=== PATIENT | female | born 1965 | race Caucasian/White ===

== ENCOUNTER → 2016-10-26 | Outpatient (CLI) | payer OTHER ==
[~2016-10-26] MED LIST: CLC100X PO; ESCI10TA17 PO; ESTR1CRE PV; FLUT0.15 NAE; GABA1CAP4 PO; LAMO200T38 PO; MULT-506 PO; PRM625 PO; RISP1TAB18 PO; SALI0.6517 NAE; TAMS0.4C38 PO; TRAZ100T29 PO; [UNRECOGNIZED DRUG - CODE] PO
== END | disposition home or self-care (01) ==
LOC: C.PAPS 08:20
PROVIDERS: ATTEND Obstetrics & Gynecology
DX: Z12.4 Encounter for screening for malignant neoplasm of cervix (principal)

== ENCOUNTER → 2016-10-31 | Outpatient (CLI) | payer OTHER | END | disposition home or self-care (01) | LOC: C.PATH 08:48 | PROVIDERS: ATTEND Obstetrics & Gynecology | DX: R59.1 Generalized enlarged lymph nodes (principal) ==

== ENCOUNTER → 2017-02-22 | Outpatient (CLI) | payer OTHER ==
--- NOTE | 2017-02-23 13:54 | MAMMOGRAPHY REPORT ---
BILATERAL DIGITAL SCREENING MAMMOGRAM TOMOSYNTHESIS WITH CAD: 02/22/2017 CLINICAL HISTORY: Routine screening. The patient reported to the technologist that she has no new co mplaints, but has a stable lump in her left breast which she has had for years. TECHNIQUE: Breast tomosynthesis in addition to standard 2D mammography was performed. Current study was also evaluated with a Computer Aided Detection (CAD) system. COMPARISON: Comparison is made to exams dated: 02/18/2016 ultrasound, 02/18/2016 mammogram - [facility], 08/11/2015 ultrasound, 03/30/2015 mammogram, 01/26/2014 mammogram, and 01/15/2013 mamm ogram - [facility] [address]. BREAST COMPOSITION: The tissue of both breasts is extremely dense, which lowers the sensitivity of m ammography. FINDINGS: No suspicious masses, calcifications, or areas of architectural distortion are noted in ei ther breast. There has been no significant interval change compared to prior exams. A triangle marke r was placed at the site of the stable left breast lump which the patient reported to the technologis t that she has had for several years. An ultrasound of this region was performed in 2015 which showe d a benign cyst. IMPRESSION: ACR BI-RADS CATEGORY 2: BENIGN There is no mammographic evidence of malignancy. A 1 year screening mammogram is recommended. The pa tient will receive written notification of the results. Approximately 10% of breast cancers are not detected with mammography. A negative mammographic report should not delay biopsy if a clinically suggestive mass is present. Dorene Sim M.D. /:02/22/2017 15:17:01 [employer] Runner Operator: Vivian HUDSON(Jeffry)(Ora), [facility] [address] letter sent: Normal 1/2 BI-RADS Code: ACR BI-RADS Category 2: Benign
== END | disposition home or self-care (01) ==
LOC: C.MAMM 11:36
PROVIDERS: ATTEND Family Medicine
DX: Z12.31 Encounter for screening mammogram for malignant neoplasm of breast (principal)

== ENCOUNTER → 2017-02-22 | Outpatient (CLI) | payer OTHER ==
--- NOTE | 2017-02-22 12:37 | DIAGNOSTIC IMAGING REPORT ---
L-SPINE MIN 4 VIEWS ROUTINE CLINICAL HISTORY: Low back pain. COMPARISON: CT of the abdomen and pelvis March 14, 2015. FINDINGS: There pelvic surgical clips. No lumbar spine fracture is identified. Vertebral body heights are maintained. There is 7 mm of anterolisthesis of L5 on S1. This is likely due to facet arthrosis. There is severe facet arthrosis bilaterally at the S1 level. Disc spaces are preserved. There is mild endplate osteophytosis. IMPRESSION: 1. Grade I anterolisthesis of L5 on S1 likely due to severe facet arthrosis at this level. 2. Mild multilevel degenerative disc disease. 3. Severe bilateral facet arthrosis at L5-S1. Electronically signed by: Shane Armando M.D. 02/22/2017 12:36 PM Dictated Date/Time: 02/22/2017 12:30 PM
== END | disposition home or self-care (01) ==
LOC: C.RAD1850 12:12
PROVIDERS: ATTEND Family Medicine
DX: M54.5 Low back pain (principal); M47.817 Spondylosis without myelopathy or radiculopathy, lumbosacral region

== ENCOUNTER → 2017-02-28 | Outpatient (CLI) | payer OTHER | END | disposition home or self-care (01) | LOC: C.LABSPEC 16:56 | PROVIDERS: ATTEND Nurse Practitioner Adult Health | DX: N39.0 Urinary tract infection, site not specified (principal) ==

== ENCOUNTER → 2017-04-26 | Outpatient (CLI) | payer OTHER | END | disposition home or self-care (01) | LOC: C.PAPS 13:41 | PROVIDERS: ATTEND Obstetrics & Gynecology | DX: Z85.41 Personal history of malignant neoplasm of cervix uteri (principal) ==

== ENCOUNTER → 2017-11-06 | Outpatient (CLI) | payer OTHER ==
[~2017-11-06] MED LIST changes: +GABA-1219 PO; -GABA1CAP4 PO; +LAMO200T35 PO; -LAMO200T38 PO
== END | disposition home or self-care (01) ==
LOC: C.PAPS 18:04
PROVIDERS: ATTEND Obstetrics & Gynecology
DX: Z12.4 Encounter for screening for malignant neoplasm of cervix (principal); Z11.51 Encounter for screening for human papillomavirus (HPV)